=== PATIENT | female | born 1955 | race Caucasian/White ===

== ENCOUNTER 2022-06-07 10:47 | Outpatient (CLI) | payer MEDICARE ==
[2022-06-07] MEDS ORDERED: Magnevist 469MG/ML 20 ML VIAL ONE (12:55)
== END 2022-06-07 10:48 | disposition home or self-care (01) ==
LOC: CSHMRI 10:47
PROVIDERS: ATTEND Surgery
DX: R51.9 Headache, unspecified (principal); H53.8 Other visual disturbances
CPT/HCPCS: 70553; A9579